=== PATIENT | male | born 2000 | race African-American/Black ===

== ENCOUNTER 2020-11-15 12:12 | Emergency (ER) | payer OTHER ==
[~2020-11-15] VITALS: Ht 177.8 cm; Wt 79.4 kg
[~2020-11-15 12:12] MED LIST: CYCLOBENZAPRINE5 MG PO; NORCO 5-325 TA1 EAC2 PO; ZPAK PO
[2020-11-15] MEDS ORDERED: ALPRAZOLAM XR3 MG PO (12:22)
[2020-11-15] MEDS ORDERED: SEROPHENE50 MG PO (12:23)
[2020-11-15] MEDS ORDERED: DOXYCYCLINE 10100 MG PO (12:37)
[2020-11-15 12:44] LABS: URINE BILIRUBIN NEGATIVE (Negative); URINE BLOOD NEGATIVE (Negative); URINE CLARITY CLEAR; URINE COLOR YELLOW; URINE GLUCOSE-RANDOM* NEGATIVE (Negative); URINE KETONES NEGATIVE (Negative); URINE LEUKOCYTES-REFLEX NEGATIVE (Negative); URINE NITRITE-REFLEX NEGATIVE (Negative); URINE PROTEIN (DIPSTICK) 1+ (Negative); URINE SPECIFIC GRAVITY >= 1.030 (1.005-1.035); URINE UROBILINOGEN 0.2 E.U./dl (0.2-1.0)
[2020-11-15 12:59] LABS: MUCUS >6 Heavy strn/LPF (None Seen); SQUAMOUS 0-3 Few /LPF (0-3)
[2020-11-15 13:00] LABS: CASTS None Seen /LPF (None Seen)
[2020-11-15 13:01] LABS: BACTERIA-REFLEX 1-9 Few /HPF (None Seen); CALCIUM OXALATE 0-3 Few /LPF (None Seen); URINE RBC 0-2 Rare /HPF (0-2); URINE WBC-REFLEX 6-15 Few /HPF (0-5)
== END 2020-11-15 13:10 | disposition home or self-care (01) ==
LOC: ER 12:12
PROVIDERS: Nurse Practitioner
DX: Z20.2 Contact with and (suspected) exposure to infections with a predominantly sexual mode of transmission (principal); J45.909 Unspecified asthma, uncomplicated; Z79.899 Other long term (current) drug therapy

== ENCOUNTER 2021-02-08 01:35 | Emergency (ER) | payer OTHER ==
[~2021-02-08] VITALS: Ht 177.8 cm; Wt 81.7 kg
[~2021-02-08 01:35] MED LIST changes: +ALPRAZOLAM XR3 MG PO; +DOXYCYCLINE 10100 MG PO; +SEROPHENE50 MG PO
[2021-02-08] MEDS ORDERED: SEROQUEL 50 MG50 M1 PO (01:49)
[2021-02-08 03:06] VITALS: BP 137/71
[2021-02-08] MEDS ORDERED: QUETIAPINE FUMA50 MG PO (03:09)
== END 2021-02-08 03:09 | disposition home or self-care (01) ==
LOC: ER 01:35
DX: S46.912A Strain of unspecified muscle, fascia and tendon at shoulder and upper arm level, left arm, initial encounter (principal); S16.1XXA Strain of muscle, fascia and tendon at neck level, initial encounter; R51.9 Headache, unspecified; J45.909 Unspecified asthma, uncomplicated; Z79.899 Other long term (current) drug therapy; V49.9XXA Car occupant (driver) (passenger) injured in unspecified traffic accident, initial encounter; Y93.89 Activity, other specified; Y92.488 Other paved roadways as the place of occurrence of the external cause; Y99.8 Other external cause status